=== PATIENT | male | born 1980 | race Caucasian/White ===

== ENCOUNTER 2018-05-13 16:37 | Emergency (ER) | payer BC ==
--- NOTE | 2018-05-13 17:38 | EDM.PDOC ---
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, a large splinter entered the dorsum of his R hand he was able to remove part of the splinter he went to walk-in who sent him here - Related Data Allergies Allergy/AdvReac Type Severity Reaction Status Date / Time No Known Allergies Allergy Verified 05/13/18 17:35 Home Meds: Home Meds Amoxicillin/Clavulanate K [Augmentin 875-125 MG] 1 tab PO BID #10 tab 05/13/18 [ Rx] Review of Systems - Review of Systems Review Of Systems: See Below Constitutional: Reports: No Symptoms Eyes: Reports: No Symptoms Ears: Reports: No Symptoms Nose: Reports: No Symptoms Mouth/Throat: Reports: No Symptoms Respiratory: Reports: No Symptoms Cardiovascular: Reports: No Symptoms GI/Abdominal: Reports: No Symptoms Genitourinary: Reports: No Symptoms Musculoskeletal: Reports: Hand Pain Skin: Reports: No Symptoms Neurological: Reports: No Symptoms Psychiatric: Reports: No Symptoms ED EXAM, GENERAL - Physical Exam Exam: See Below Exam Limited By: No Limitations General Appearance: Alert, WD/WN Skin Exam: Other (on the dorsum of the R hand there is a 4 mm entry wound over the middle of the 2nd MC, 2 cm distal to the entry wound is the proximal end of the splinter which extends subc over the 2nd MCP, it is easily palpable and superficial, appears subc and lying over the tendon without injury to tendon or MCP joint, lies parallel and superior to the 2nd MC, a 5 mm incision was made with a #11 blade after betadaine prep x 6 and cleaning of betadaine x 3 with NS soaked gauze, incision parallel to the f.b., the end of the splinter was grasped with a hemostat and pulle out intact, 5 cm long, good flex/ext of 2nd MCP, m/s intact, last Td 2y ago, tolerated well, s.o. present during procedure) Departure - Departure Time of Disposition: 17:32 Disposition: Home, Self-Care 01 Condition: Good Clinical Impression: Foreign body of hand, right, superficial - Discharge Information *PRESCRIPTION DRUG MONITORING PROGRAM REVIEWED*: Not Applicable *COPY OF PRESCRIPTION DRUG MONITORING REPORT IN PATIENT MARIA ELENA: Not Applicable Prescriptions: Amoxicillin/Clavulanate K [Augmentin 875-125 MG] 1 tab PO BID #10 tab Instructions: Hand or Foot Foreign Body, Adult Additional Instructions: Use splint for 2 days. For pain and inflammation and swelling, take ibuprofen 200 mg 4 tabs and acetaminophen 500 mg 2 tabs 3 times a day for 2 days. Use ice for 10 minutes every 2 hours as needed. See your doctor in 1 week to remove the suture. See your doctor if you are not 100% better in 1 week. See your doctor earlier (or return to ED) if you have any increase in redness, swelling, pain, warmth, fever or drainage. To decrease the risk of infection, take Augmentin 875/125 mg 1 tab 2 times a day for 5 days.
== END 2018-05-13 17:43 | disposition home or self-care (01) ==
LOC: FB.ED 16:37
DX: S60.551A Superficial foreign body of right hand, initial encounter (principal); W45.8XXA Other foreign body or object entering through skin, initial encounter
CPT/HCPCS: 10120; 12001; 99282